=== PATIENT | male | born 1985 | race Caucasian/White ===

== ENCOUNTER 2023-05-25 18:05 | Emergency (ER) | payer OTHER, SELFPAY ==
[2023-05-25 18:09] VITALS: BP 123/67; PULSE 66; RESP 18; TEMP 35.9; O2SAT 96; BMI 31.1
--- NOTE | 2023-05-25 18:21 | DI.RAD.S_ITS ---
PROCEDURE: XR TIBIA FIBULA LT 2V INDICATIONS: laceration TECHNIQUE: 2 views of the tibia and fibula were acquired. COMPARISON: None. FINDINGS: Bones: No fractures or dislocations. No suspicious bony lesions. Soft tissues: No suspicious soft tissue calcifications or masses. IMPRESSION: No fracture or dislocation. Dictated by: Marco A Negrete M.D. on 05/25/2023 at 19:17 Approved by: Marco A Negrete M.D. on 05/25/2023 at 19:19
[2023-05-25] MEDS: TET,DIPH,PERTUSS(ACELL),VAC/PF 0.5 ML SYRINGE IM (19:44)
[2023-05-25] MEDS: IBUPROFEN 400 MG TABLET PO (22:30)
[2023-05-25] MEDS: ONDANSETRON 4 MG ODT SL (22:30)
[2023-05-25] MEDS: OXYCODONE/ACETAMINOPHEN 5/325 TABLET 1 TAB PO ×2 (22:30→22:44)
[2023-05-25 23:44] VITALS: BP 155/55; PULSE 72; RESP 16; O2SAT 98
--- NOTE | 2023-05-26 00:31 | ED_ITS ---
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 He comes in for further evaluation. Bleeding is controlled. He has no other complaints Related Data Allergies Allergy/AdvReac Type Severity Reaction Status Date / Time No Known Drug Allergies Allergy Verified 05/25/23 19:45 Review of Systems Review of Systems Narrative: Pertinent positive and negative findings as per HPI Exam Initial Vital Signs Initial Vital Signs: Vital Signs Temperature 96.7 F L 05/25/23 18:09 Pulse Rate 66 05/25/23 18:09 Respiratory Rate 18 05/25/23 18:09 Blood Pressure 123/67 05/25/23 18:09 Pulse Oximetry 96 05/25/23 18:09 Oxygen Delivery Method Room Air 05/25/23 18:09 General: Alert appropriate in no acute distress Respiratory: Able to speak in full sentences, no obvious respiratory distress Skin: No obvious rashes, warm and dry Neurologic: Grossly intact no obvious asymmetries or abnormalities Psych: appropriate insight and affect, cooperative Extremity: 6 cm vertical laceration to the left anterior joe Procedures Laceration Repair Left joe: Time of procedure: 00:32 Site: lower extremity Side (If applicable): left Size (cm): 6 Description: linear and clean Depth: involves muscle layer Local Anesthetic: lidocaine 2% and with epi Amount of anesthesia used (mL): 4 Pre-repair: wound explored, irrigated extensively and deep structures i ntact Skin layer closed with: nylon Skin layer suture size: 3-0 Number of sutures: 7 Technique: simple, interrupted Subcutaneous layer closed with: vicryl Subcutaneous layer suture size: 3-0 Number of sutures: 3 Technique: other (Horizontal mattress) Course Orders Ordered: ED Orders 05/25/23 18:21 XR tibia fibula LT 2V Stat Discontinued Medications Diphtheria/Tetanus/Acell Pertussis (Tet,Diph,Pertuss(Acell),Vac/Pf 0.5 Ml Syringe) 0.5 ml IM .ONCE ONE Stop: 05/25/23 18:22 Last Admin: 07/17/23 19:44 Dose: 0.5 ml Documented By: MEGHAN Ibuprofen (Ibuprofen 400 Mg Tablet) 400 mg PO NOW ONE Stop: 05/25/23 22:22 Last Admin: 05/25/23 22:30 Dose: 400 mg Documented By: MEGHAN Ondansetron HCl (Ondansetron 4 Mg Odt) 4 mg SL NOW ONE Stop: 05/25/23 22:21 Last Admin: 05/25/23 22:30 Dose: 4 mg Documented By: MEGHAN Oxycodone/Acetaminophen (Oxycodone/Acetaminophen 5/325 Tablet) 1 tab PO NOW ONE Stop: 05/25/23 22:22 Last Admin: 05/25/23 22:30 Dose: 1 tab Documented By: MEGHAN Oxycodone/Acetaminophen (Oxycodone/Acetaminophen 5/325 Tablet) 1 tab PO NOW ONE Stop: 05/25/23 22:34 Last Admin: 05/25/23 22:44 Dose: 1 tab Documented By: MEGHAN Vital Signs Vital signs: Vital Signs - 8 hr 05/25/23 18:09 05/25/23 23:44 Temperature 96.7 F L Pulse Rate 66 72 Respiratory Rate 18 16 Blood Pressure 123/67 155/55 H Pulse Oximetry 96 98 Oxygen Delivery Method Room Air Room Air MDM - Wound/Laceration MDM Narrative Medical decision making narrative: CC: Left lower extremity laceration. Acute issue self-limited Data collected from: patient, partner Differential considered: Superficial laceration, deep laceration, bone involvement Exam documented above, pertinent findings include: Laceration to the fascial layers over the anterior joe without significant muscle involvement. Neurovascularly intact. Imaging studies independently reviewed: Tib-fib x-ray is unremarkable Treatments: Laceration repair, oral ibuprofen, oral Percocet Discussion: 37-year-old gentleman with clean but deep 6 cm laceration to the left anterior joe. Subcutaneous layers are closed with Vicryl and epidermal layers closed with nylon with good anesthetic results. There is no indication for antibiotics at this time. I did give him an Manolo wrap to use if needed to help with compression for pain control. He is given a couple of tablets of Percocet to use for pain control if needed. Recommended superficial sutures out in 10 days. Questions are answered he is safe for discharge home Discharge Plan Departure Patient Disposition: Home Clinical Impression: Laceration Instructions: DI for Laceration Repair Activity Restrictions/Additional Instructions: Thank you for coming in today I used 2 layers to close the knife wound to your leg. The superficial stitches need to come out on or about June 05. Please keep the wound covered, clean and dry as much as possible. If you notice increasing redness drainage or pain you do need to be seen and re-evaluated. Using 400 mg of ibuprofen (2 [id number] pills) and 1 Tylenol every 6 hours can be very helpful in controlling pain. For severe pain using 400 mg of ibuprofen and 1 Percocet can be helpful. I think you will also find that elevating the foot at the end of the night will be helpful if you have tenderness around the area. You may also find that slight compression with an Manolo wrap around the lower leg is helpful with controlling pain. If you find that you are getting worse or develop any new symptoms, please feel free to return to the emergency department for further evaluation. I hope the rest of your camping trip at [facility] is a little less eventful. Please enjoy! Stand Alone Forms: Patient Portal/API
[2023-05-26] MEDS: OXYCODONE/APAP 5/325 PREPACK 1 BOTTLE MISC (00:50)
[2023-05-26 00:51] VITALS: BP 130/60; PULSE 65; RESP 18; O2SAT 98
== END 2023-05-26 00:52 | disposition home or self-care (01) ==
PROVIDERS: Emergency Provider Emergency Medicine
DX: S81.812A Laceration without foreign body, left lower leg, initial encounter (principal); W26.0XXA Contact with knife, initial encounter; Z23 Encounter for immunization
CPT/HCPCS: 13121; 73590; 90471; 99284; 90715